=== PATIENT | male | born 1975 | race African-American/Black ===

== ENCOUNTER 2019-07-31 17:37 | Emergency (ER) | payer BC ==
[~2019-07-31] VITALS: Ht 170.2 cm; Wt 81.7 kg
[2019-07-31] MEDS ORDERED: PREDNISONE 20 M20 MG PO (18:36)
[2019-07-31] MEDS ORDERED: HYDROCORTISONE3011 TP (18:36)
[2019-07-31 18:43] VITALS: BP 147/91
== END 2019-07-31 18:44 | disposition home or self-care (01) ==
LOC: M.ERS 17:37
DX: L25.9 Unspecified contact dermatitis, unspecified cause (principal); F17.200 Nicotine dependence, unspecified, uncomplicated